=== PATIENT | female | born 1955 | race Caucasian/White ===

== ENCOUNTER 2021-04-14 08:42 | Emergency (ER) | payer MEDICARE ==
[2021-04-14] MEDS ORDERED: Sodium Chloride 0.9% 10 ML Syringe FLUSH PRN (08:47)
[2021-04-14] MEDS ORDERED: Ketorolac 30 MG/ML SDV IVPUSH STA (09:17)
[2021-04-14] MEDS ORDERED: Insulin Lispro 100 Unit/ML 3 ML KwikPen SUBCUT STA ×2 (09:17→15:32)
[2021-04-14] MEDS ORDERED: 50% Dextrose in Water 50 ML Syringe IVPUSH PRN ×2 (09:17→15:32)
[2021-04-14] MEDS ORDERED: Glucagon,Human Recombinant 1 MG Vial IM PRN ×2 (09:17→15:32)
[2021-04-14] MEDS ORDERED: Ondansetron 4 MG/2 ML SDV IVPUSH STA (09:17)
[2021-04-14] MEDS ORDERED: Insulin Lispro 100 Unit/ML 3 ML KwikPen SUBCUT ONE (09:42)
[2021-04-14] MEDS ORDERED: Sodium Chloride 0.9% 1,000 ML IV SCH ×4 (11:45→17:00)
[2021-04-14 13:36] LABS: BASE EXCESS VENOUS,POC -13 mmol/L (-2 - 3+); PCO2 VENOUS,POC 24 mmHg (41-51)
[2021-04-14] MEDS ORDERED: Insulin Regular in 0.9 % NACL 100 ML IV SCH (17:00)
--- NOTE | 2021-04-14 17:54 | EDM.PDOC ---
ED HPI GENERAL MEDICAL PROBLEM - General Stated Complaint: WEAKNESS Time Seen by Provider: 04/14/21 10:00 Source of Information: Reports: Patient History Limitations: Reports: No Limitations - History of Present Illness INITIAL COMMENTS - FREE TEXT/NARRATIVE: Patient is a 66 WF who presented to the ED because of weakness and lethargy. She said she was not feeling well since 04/07 and has gotten worse since then. She her poor oral intake and had nausea and vomiting X 3 yesterday. She was also lethargic and barely open uo her eyes. There is no fever, chills, cough or cold. Denies having any urinary symptoms or changes in bowel movements. 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) Psychiatric: Reports: No Symptoms Hematologic/Lymphatic: Reports: No Symptoms ED EXAM, GENERAL - Physical Exam Exam: See Below Exam Limited By: No Limitations General Appearance: Alert, No Apparent Distress Eye Exam: Bilateral Eye: PERRL Ears: Normal External Exam, Normal Canal, Hearing Grossly Normal Nose: Normal Inspection, Normal Mucosa, No Blood Throat/Mouth: Normal Inspection, Normal Lips Head: Atraumatic, Normocephalic Neck: Normal Inspection, Supple, Non-Tender, Full Range of Motion Respiratory/Chest: No Respiratory Distress, Lungs Clear, Normal Breath Sounds, No Accessory Muscle Use, Chest Non-Tender Cardiovascular: Normal Peripheral Pulses, Regular Rate, Rhythm, No Edema, No Ga llop, No JVD, No Murmur, No Rub GI/Abdominal: Normal Bowel Sounds, Soft, Non-Tender, No Organomegaly, No Distention Back Exam: Normal Inspection, Full Range of Motion Extremities: Normal Inspection, Normal Range of Motion, Non-Tender, No Pedal Edema, Normal Capillary Refill Neurological: CN II-XII Intact, Normal Cognition, Normal Gait, Normal Reflexes, No Motor/Sensory Deficits, Other (lethargic) #1 Interpretation EKG Date: 04/14/21 Time: 10:56 Rhythm: NSR Rate (Beats/Min): 96 Industry: Normal P-Wave: Present QRS: Normal ST-T: Normal QT: Normal NE/PQ Interval: 162 Comparison: NA - No Prior EKG EKG Interpretation Comments: NSR LVH Prolonged QT Course - Vital Signs Text/Narrative:: Lab/EKG/CXR result was reviewed and discussed with patient NS 3 L bolus Humalog 40 U SC x1 Humalog 20 U SC x1 INsulin drip @ 6.8 U/HR titrate Case was discussed with Dr Ribera Last Recorded V/S: Last Vital Signs Temp 36.4 C 04/14/21 08:45 Pulse 99 04/14/21 08:45 Resp 18 04/14/21 08:45 BP 129/29 L 04/14/21 08:45 Pulse Ox 99 04/14/21 08:45 - Orders/Labs/Meds Orders: Active Orders 24 hr Category Date Time Status Chest 1V Frontal [CR] Stat Exams 04/14/21 08:47 Taken Saline Lock Insert [OM.PC] Routine Oth 04/14/21 08:47 Ordered EKG 12 Lead [EK] Routine Ther 04/14/21 08:47 Ordered Labs: Laboratory Tests 04/14/21 04/14/21 04/14/21 Range/Units 08:46 08:50 09:30 WBC 15.2 H (3.0-10.3) x10-3/uL RBC 4.73 (3.60-5.20) x10(6)uL Hgb 11.7 (11.4-15.5) g/dL Hct 39.1 (34.2-48.2) % MCV 82.7 (76.7-100.5) fL MCH 24.7 (23.9-33.9) pg MCHC 29.8 L (31.9-34.8) g/dL RDW 20.5 H (12.3-16.5) % Plt Count 467 (151-488) x10(3)uL MPV 7.8 (7.1-12.4) fL Add Manual Diff Yes Neutrophils % (Manual) 93 H (46-82) % Band Neutrophils % 2 (0-6) % Lymphocytes % (Manual) 2 L (13-37) % Monocytes % (Manual) 2 L (4-12) % Eosinophils % (Manual) 1 (0-5) % POC VBG pH (7.32-7.43) pH Units POC VBG pCO2 (41-51) mmHg POC VBG HCO3 (22-29) mmol/L VBG Base Excess (-2 - 3+) mmol/L O2 Delivery Device Oxygen Flow Rate LPM Sodium (135-145) mmol/L Potassium (3.5-5.3) mmol/L Chloride (100-110) mmol/L Carbon Dioxide (21-32) mmol/L BUN (7-18) mg/dL Creatinine (0.55-1.02) mg/dL Est Cr Clr Drug Dosing Estimated GFR (MDRD) (>60) BUN/Creatinine Ratio (9-20) Glucose (80-116) mg/dL POC Glucose > 600 H* (80-116) mg/dL Calcium (8.6-10.2) mg/dL Total Bilirubin (0.1-1.3) mg/dL AST (5-25) IU/L ALT (12-36) U/L Alkaline Phosphatase (56-112) IU/L Troponin I (4.0-60.3) pg/mL Total Protein (6.0-8.0) g/dL Albumin (3.2-4.6) g/dL Globulin g/dL Albumin/Globulin Ratio Urine Color Yellow (YELLOW) Urine Appearance Cloudy (CLEAR) Urine pH 5.0 (5.0-6.5) Ur Specific [employer] 1.015 (1.010-1.025) Urine Protein Negative (NEGATIVE) mg/dL Urine Glucose (UA) >1000 H (NORMAL) mg/dL Urine Ketones 50 H (NEGATIVE) mg/dL Urine Occult Blood Negative (NEGATIVE) Urine Nitrite Negative (NEGATIVE) Urine Bilirubin Negative (NEGATIVE) Urine Urobilinogen Normal (NEGATIVE) mg/dL Ur Leukocyte Esterase Negative (NEGATIVE) Urine RBC 0-5 (0-5) Urine WBC 0-5 (0-5) Ur Squamous Epith Cells Few H (NS,R,O) Urine Bacteria Few H (NS) SARS-CoV-2 RNA (CHRISS) (NEGATIVE) 04/14/21 04/14/21 04/14/21 Range/Units 09:30 09:30 11:00 WBC (3.0-10.3) x10-3/uL RBC (3.60-5.20) x10(6)uL Hgb (11.4-15.5) g/dL Hct (34.2-48.2) % MCV (76.7-100.5) fL MCH (23.9-33.9) pg MCHC (31.9-34.8) g/dL RDW (12.3-16.5) % Plt Count (151-488) x10(3)uL MPV (7.1-12.4) fL Add Manual Diff Neutrophils % (Manual) (46-82) % Band Neutrophils % (0-6) % Lymphocytes % (Manual) (13-37) % Monocytes % (Manual) (4-12) % Eosinophils % (Manual) (0-5) % POC VBG pH (7.32-7.43) pH Units POC VBG pCO2 (41-51) mmHg POC VBG HCO3 (22-29) mmol/L VBG Base Excess (-2 - 3+) mmol/L O2 Delivery Device Oxygen Flow Rate LPM Sodium 125 L (135-145) mmol/L Potassium 3.0 L (3.5-5.3) mmol/L Chloride 81 L* (100-110) mmol/L Carbon Dioxide 8 L* (21-32) mmol/L BUN 47 H (7-18) mg/dL Creatinine 1.9 H (0.55-1.02) mg/dL Est Cr Clr Drug Dosing TNP Estimated GFR (MDRD) 26 L (>60) BUN/Creatinine Ratio 24.7 H (9-20) Glucose 610 H* (80-116) mg/dL POC Glucose (80-116) mg/dL Calcium 11.2 H (8.6-10.2) mg/dL Total Bilirubin 0.8 (0.1-1.3) mg/dL AST 16 (5-25) IU/L ALT 16 (12-36) U/L Alkaline Phosphatase 73 (56-112) IU/L Troponin I 12.4 (4.0-60.3) pg/mL Total Protein 8.0 (6.0-8.0) g/dL Albumin 3.9 (3.2-4.6) g/dL Globulin 4.1 g/dL Albumin/Globulin Ratio 1.0 Urine Color (YELLOW) Urine Appearance (CLEAR) Urine pH (5.0-6.5) Ur Specific [employer] (1.010-1.025) Urine Protein (NEGATIVE) mg/dL Urine Glucose (UA) (NORMAL) mg/dL Urine Ketones (NEGATIVE) mg/dL Urine Occult Blood (NEGATIVE) Urine Nitrite (NEGATIVE) Urine Bilirubin (NEGATIVE) Urine Urobilinogen (NEGATIVE) mg/dL Ur Leukocyte Esterase (NEGATIVE) Urine RBC (0-5) Urine WBC (0-5) Ur Squamous Epith Cells (NS,R,O) Urine Bacteria (NS) SARS-CoV-2 RNA (CHRISS) Negative (NEGATIVE) 04/14/21 04/14/21 04/14/21 Range/Units 11:40 12:53 13:15 WBC (3.0-10.3) x10-3/uL RBC (3.60-5.20) x10(6)uL Hgb (11.4-15.5) g/dL Hct (34.2-48.2) % MCV (76.7-100.5) fL MCH (23.9-33.9) pg MCHC (31.9-34.8) g/dL RDW (12.3-16.5) % Plt Count (151-488) x10(3)uL MPV (7.1-12.4) fL Add Manual Diff Neutrophils % (Manual) (46-82) % Band Neutrophils % (0-6) % Lymphocytes % (Manual) (13-37) % Monocytes % (Manual) (4-12) % Eosinophils % (Manual) (0-5) % POC VBG pH (7.32-7.43) pH Units POC VBG pCO2 (41-51) mmHg POC VBG HCO3 (22-29) mmol/L VBG Base Excess (-2 - 3+) mmol/L O2 Delivery Device Oxygen Flow Rate LPM Sodium 124 L (135-145) mmol/L Potassium 2.4 L* (3.5-5.3) mmol/L Chloride 86 L* D (100-110) mmol/L Carbon Dioxide 11 L* (21-32) mmol/L BUN 48 H (7-18) mg/dL Creatinine 1.9 H (0.55-1.02) mg/dL Est Cr Clr Drug Dosing TNP Estimated GFR (MDRD) 26 L (>60) BUN/Creatinine Ratio 25.3 H (9-20) Glucose 473 H* D (80-116) mg/dL POC Glucose > 600 H* 463 H* D (80-116) mg/dL Calcium 10.0 (8.6-10.2) mg/dL Total Bilirubin (0.1-1.3) mg/dL AST (5-25) IU/L ALT (12-36) U/L Alkaline Phosphatase (56-112) IU/L Troponin I (4.0-60.3) pg/mL Total Protein (6.0-8.0) g/dL Albumin (3.2-4.6) g/dL Globulin g/dL Albumin/Globulin Ratio Urine Color (YELLOW) Urine Appearance (CLEAR) Urine pH (5.0-6.5) Ur Specific [employer] (1.010-1.025) Urine Protein (NEGATIVE) mg/dL Urine Glucose (UA) (NORMAL) mg/dL Urine Ketones (NEGATIVE) mg/dL Urine Occult Blood (NEGATIVE) Urine Nitrite (NEGATIVE) Urine Bilirubin (NEGATIVE) Urine Urobilinogen (NEGATIVE) mg/dL Ur Leukocyte Esterase (NEGATIVE) Urine RBC (0-5) Urine WBC (0-5) Ur Squamous Epith Cells (NS,R,O) Urine Bacteria (NS) SARS-CoV-2 RNA (CHRISS) (NEGATIVE) 04/14/21 04/14/21 04/14/21 Range/Units 13:20 15:30 17:28 WBC (3.0-10.3) x10-3/uL RBC (3.60-5.20) x10(6)uL Hgb (11.4-15.5) g/dL Hct (34.2-48.2) % MCV (76.7-100.5) fL MCH (23.9-33.9) pg MCHC (31.9-34.8) g/dL RDW (12.3-16.5) % Plt Count (151-488) x10(3)uL MPV (7.1-12.4) fL Add Manual Diff Neutrophils % (Manual) (46-82) % Band Neutrophils % (0-6) % Lymphocytes % (Manual) (13-37) % Monocytes % (Manual) (4-12) % Eosinophils % (Manual) (0-5) % POC VBG pH 7.30 L (7.32-7.43) pH Units POC VBG pCO2 24 L (41-51) mmHg POC VBG HCO3 12 L (22-29) mmol/L VBG Base Excess -13 L (-2 - 3+) mmol/L O2 Delivery Device Room air Oxygen Flow Rate 0 LPM Sodium (135-145) mmol/L Potassium (3.5-5.3) mmol/L Chloride (100-110) mmol/L Carbon Dioxide (21-32) mmol/L BUN (7-18) mg/dL Creatinine (0.55-1.02) mg/dL Est Cr Clr Drug Dosing Estimated GFR (MDRD) (>60) BUN/Creatinine Ratio (9-20) Glucose (80-116) mg/dL POC Glucose 412 H* 419 H* (80-116) mg/dL Calcium (8.6-10.2) mg/dL Total Bilirubin (0.1-1.3) mg/dL AST (5-25) IU/L ALT (12-36) U/L Alkaline Phosphatase (56-112) IU/L Troponin I (4.0-60.3) pg/mL Total Protein (6.0-8.0) g/dL Albumin (3.2-4.6) g/dL Globulin g/dL Albumin/Globulin Ratio Urine Color (YELLOW) Urine Appearance (CLEAR) Urine pH (5.0-6.5) Ur Specific [employer] (1.010-1.025) Urine Protein (NEGATIVE) mg/dL Urine Glucose (UA) (NORMAL) mg/dL Urine Ketones (NEGATIVE) mg/dL Urine Occult Blood (NEGATIVE) Urine Nitrite (NEGATIVE) Urine Bilirubin (NEGATIVE) Urine Urobilinogen (NEGATIVE) mg/dL Ur Leukocyte Esterase (NEGATIVE) Urine RBC (0-5) Urine WBC (0-5) Ur Squamous Epith Cells (NS,R,O) Urine Bacteria (NS) SARS-CoV-2 RNA (CHRISS) (NEGATIVE) 04/14/21 04/14/21 04/14/21 Range/Units 18:44 19:42 20:19 WBC (3.0-10.3) x10-3/uL RBC (3.60-5.20) x10(6)uL Hgb (11.4-15.5) g/dL Hct (34.2-48.2) % MCV (76.7-100.5) fL MCH (23.9-33.9) pg MCHC (31.9-34.8) g/dL RDW (12.3-16.5) % Plt Count (151-488) x10(3)uL MPV (7.1-12.4) fL Add Manual Diff Neutrophils % (Manual) (46-82) % Band Neutrophils % (0-6) % Lymphocytes % (Manual) (13-37) % Monocytes % (Manual) (4-12) % Eosinophils % (Manual) (0-5) % POC VBG pH (7.32-7.43) pH Units POC VBG pCO2 (41-51) mmHg POC VBG HCO3 (22-29) mmol/L VBG Base Excess (-2 - 3+) mmol/L O2 Delivery Device Oxygen Flow Rate LPM Sodium (135-145) mmol/L Potassium (3.5-5.3) mmol/L Chloride (100-110) mmol/L Carbon Dioxide (21-32) mmol/L BUN (7-18) mg/dL Creatinine (0.55-1.02) mg/dL Est Cr Clr Drug Dosing Estimated GFR (MDRD) (>60) BUN/Creatinine Ratio (9-20) Glucose (80-116) mg/dL POC Glucose 413 H* 377 H 372 H (80-116) mg/dL Calcium (8.6-10.2) mg/dL Total Bilirubin (0.1-1.3) mg/dL AST (5-25) IU/L ALT (12-36) U/L Alkaline Phosphatase (56-112) IU/L Troponin I (4.0-60.3) pg/mL Total Protein (6.0-8.0) g/dL Albumin (3.2-4.6) g/dL Globulin g/dL Albumin/Globulin Ratio Urine Color (YELLOW) Urine Appearance (CLEAR) Urine pH (5.0-6.5) Ur Specific [employer] (1.010-1.025) Urine Protein (NEGATIVE) mg/dL Urine Glucose (UA) (NORMAL) mg/dL Urine Ketones (NEGATIVE) mg/dL Urine Occult Blood (NEGATIVE) Urine Nitrite (NEGATIVE) Urine Bilirubin (NEGATIVE) Urine Urobilinogen (NEGATIVE) mg/dL Ur Leukocyte Esterase (NEGATIVE) Urine RBC (0-5) Urine WBC (0-5) Ur Squamous Epith Cells (NS,R,O) Urine Bacteria (NS) SARS-CoV-2 RNA (CHRISS) (NEGATIVE) Meds: Medications Discontinued Medications Generic Name Dose Route Start Last Admin Trade Name Freq PRN Reason Stop Dose Admin Hydrocodone Bitart/Acetaminophen 2 tab 04/14/21 20:03 04/14/21 20:15 Acetaminophen/Hydrocodone 325-5 Mg Tab PO 04/14/21 20:04 2 tab NOW STA Administration Dextrose/Water 50 ml 04/14/21 09:17 50% Dextrose In Water 50 Ml Syringe IVPUSH ASDIRECTED PRN Hypoglycemia Dextrose/Water 50 ml 04/14/21 15:32 50% Dextrose In Water 50 Ml Syringe IVPUSH ASDIRECTED PRN Hypoglycemia Glucagon 1 mg 04/14/21 09:17 Glucagon,Human Recombinant 1 Mg Vial IM ASDIRECTED PRN Hypoglycemia Glucagon 1 mg 04/14/21 15:32 Glucagon,Human Recombinant 1 Mg Vial IM ASDIRECTED PRN Hypoglycemia Sodium Chloride 1,000 mls @ 999 mls/hr 04/14/21 11:45 04/14/21 11:43 Normal Saline IV 999 mls/hr ASDIRECTED HOLLY Administration Sodium Chloride 1,000 mls @ 999 mls/hr 04/14/21 14:15 04/14/21 14:15 Normal Saline IV 999 mls/hr ASDIRECTED HOLLY Administration Sodium Chloride 1,000 mls @ 150 mls/hr 04/14/21 15:45 Normal Saline IV ASDIRECTED HOLLY Insulin Regular in 0.9 % NACL 100 mls @ 6.8 mls/hr 04/14/21 17:00 04/14/21 19:52 Myxredlin In Ns 100 Unit/100 Ml IV 0.22 units/kg/hr TITRATE HOLLY 15 mls/hr Titration Protocol 0.1 UNITS/KG/HR Sodium Chloride 1,000 mls @ 999 mls/hr 04/14/21 17:00 Normal Saline IV ASDIRECTED HOLLY Insulin Human Lispro 40 unit 04/14/21 09:17 04/14/21 09:54 Insulin Lispro 100 Unit/Ml 3 Ml Kwikpen SUBCUT 04/14/21 09:18 40 units NOW STA Administration Insulin Human Lispro 20 unit 04/14/21 15:32 04/14/21 15:43 Insulin Lispro 100 Unit/Ml 3 Ml Kwikpen SUBCUT 04/14/21 15:33 20 units NOW STA Administration Ketorolac Tromethamine 30 mg 04/14/21 09:17 04/14/21 09:55 Ketorolac 30 Mg/Ml Sdv IVPUSH 04/14/21 09:18 30 mg NOW STA Administration Levetiracetam 1,000 mg 04/14/21 20:03 04/14/21 20:14 Levetiracetam 500 Mg Tab PO 04/14/21 20:04 1,000 mg NOW STA Administration Ondansetron HCl 4 mg 04/14/21 09:17 04/14/21 09:54 Ondansetron 4 Mg/2 Ml Sdv IVPUSH 04/14/21 09:18 4 mg NOW STA Administration Potassium Chloride 40 meq 04/14/21 18:03 04/14/21 18:49 Potassium Chloride 20 Meq Tab.Er PO 04/14/21 18:04 40 meq NOW STA Administration Potassium Chloride 40 meq 04/14/21 20:03 04/14/21 20:15 Potassium Chloride 20 Meq Tab.Er PO 04/14/21 20:04 40 meq NOW STA Administration Sodium Chloride 10 ml 04/14/21 08:47 Sodium Chloride 0.9% 10 Ml Syringe FLUSH ASDIRECTED PRN Keep Vein Open Departure - Departure Time of Disposition: 18:00 Disposition: DC/Tfer to Acute Hospital 02 Condition: Good Clinical Impression: DKA (diabetic ketoacidosis), Metabolic acidosis, Pseudohyponatremia, Hypokale jame, Dehydration, Multiple sclerosis - Discharge Information Referrals: PCP,None [Primary Care Provider] - Forms: ED Department Discharge - My Orders Last 24 Hours: My Active Orders 04/14/21 08:47 Chest 1V Frontal [CR] Stat Saline Lock Insert [OM.PC] Routine EKG 12 Lead [EK] Routine - Assessment/Plan Last 24 Hours: My Active Orders 04/14/21 08:47 Chest 1V Frontal [CR] Stat Saline Lock Insert [OM.PC] Routine EKG 12 Lead [EK] Routine
[2021-04-14] MEDS ORDERED: Potassium Chloride 20 MEQ Tab.ER PO STA ×2 (18:03→20:03)
[2021-04-14] MEDS ORDERED: Acetaminophen/HYDROcodone 325-5 MG Tab PO STA (20:03)
[2021-04-14] MEDS ORDERED: levETIRAcetam 500 MG Tab PO STA (20:03)
== END 2021-04-14 20:35 ==
LOC: FB.ED 08:42
DX: E11.10 Type 2 diabetes mellitus with ketoacidosis without coma (principal); G35 Multiple sclerosis; E87.6 Hypokalemia; E86.0 Dehydration; E87.1 Hypo-osmolality and hyponatremia; Z20.822 Contact with and (suspected) exposure to COVID-19
CPT/HCPCS: 36415; 71045; 80048; 80053; 81001; 82947; 84484; 85025; 93005; 96374; 96375; 99285; A9270; J1815; J1885; J2405; J7030; U0002; 93010